=== PATIENT | female | born 1995 | race Caucasian/White ===

== ENCOUNTER 2018-01-28 09:00 | Emergency (ER) | payer BC ==
[2018-01-28 09:30] LABS: BHCG - Serum Negative (NEGATIVE); Pregs Control Background? CLEAR/WHITE (CLR/WHITE); Pregs Control Bar Appear? YES (CONTROL BAR)
[2018-01-28 09:31] LABS: Hemoglobin 13.5 g/dL (12.0-16.0); Mean Corpuscular HGB CONC 35.1 g/dL (32.0-36.0); Mean Corpuscular Hemoglobin 30.9 pg (25.0-35.0); Mean Corpuscular Volume 88.2 fL (78.0-98.0); Mean Platelet Volume 8.4 fL (7.4-10.4); Platelet Count 170 thou/uL (130-400); Red Blood Cell (RBC) Count 4.38 mill/uL (4.00-5.20); White Blood Cell (WBC) Count 4.1 thou/uL (4.8-10.8)
[2018-01-28 09:42] LABS: Anion Gap 15 mmol/L (10-20); BUN (Urea Nitrogen) 10 mg/dL (7.0-18.7); Calc. Creatinine Clearance 0 mL/min (70-130); Calcium 9.9 mg/dL (7.8-10.44); Carbon Dioxide 20 mmol/L (22-29); Chloride 109 mmol/L (98-107); Estimated GFR-MDRD Greater than 90; Glucose 97 mg/dL (70-105); Potassium 3.3 mmol/L (3.5-5.1); Sodium 141 mmol/L (136-145)
[2018-01-28 09:51] LABS: Eosinophils 2 % (0-10); Lymphocytes 22 % (28-48); MDiff Complete? YES; Monocytes 16 % (0-4); Neutrophil 60 % (31-61); PLT Morphology Comment Appears Adequate; RBC Morphology Normal
[2018-01-28] MEDS ORDERED: Potassium Chloride 20 MEQ TAB ONE (09:53)
--- NOTE | 2018-01-28 10:25 | CT ---
CT OF HEAD NONCONTRAST: INDICATION: Syncope. FINDINGS: There is no ventriculomegaly, mass effect, midline shift, or acute intracranial hemorrhage. The imag ed paranasal sinuses are clear, and the calvarium is intact. IMPRESSION: No acute intracranial abnormalities. POS: [facility]
== END 2018-01-28 10:20 | disposition home or self-care (01) ==
LOC: SCSER 09:00
DX: R55 Syncope and collapse (principal); S00.83XA Contusion of other part of head, initial encounter; W18.30XA Fall on same level, unspecified, initial encounter
CPT/HCPCS: 70450; 80048; 84703; 85025; 93005

== ENCOUNTER 2018-02-04 09:52 | Emergency (ER) | payer BC ==
[2018-02-04] MEDS ORDERED: Prochlorperazine 10 MG/2 ML VIAL ONE (11:06)
[2018-02-04] MEDS ORDERED: Ketorolac Tromethamine 30 MG/ML VIAL ONE (11:06)
[2018-02-04] MEDS ORDERED: diphenhydrAMINE 50 MG/ML VIAL ONE (11:06)
--- NOTE | 2018-02-04 11:34 | CT ---
CT OF THE HEAD WITHOUT CONTRAST: DATE: 02/04/2018. COMPARISON: 01/28/2018. HISTORY: Migraine headaches, severe acute headache onset. TECHNIQUE: Axial CT imaging at 4.8 mm intervals from vertex through the skull base without contrast. FINDINGS: Imaged paranasal sinuses/mastoid air cells well aerated. No intracranial hemorrhage, midline shift, or mass effect. No acute osseous abnormality. IMPRESSION: No acute findings - stable head CT. POS: [facility]
== END 2018-02-04 12:03 | disposition home or self-care (01) ==
LOC: SCSER 09:52
DX: G43.909 Migraine, unspecified, not intractable, without status migrainosus (principal); H54.7 Unspecified visual loss; F32.9 Major depressive disorder, single episode, unspecified; Z79.899 Other long term (current) drug therapy
CPT/HCPCS: 70450; 94760; 96365; 96375; J0780; J1200; J1885